=== PATIENT | male | born 1950 | race Caucasian/White ===

== ENCOUNTER 2023-08-19 06:23 | Day surgery (SDC) | payer MEDICARE, BC ==
[~2023-08-19] VITALS: Ht 165.1 cm; Wt 101.2 kg
[~2023-08-19 06:23] MED LIST: BAYE81TA10 PO; FAMO40TA3 PO; HYDR-3490 PO; LOSA100T46 PO; META0.52 PO; NEUR300C PO; PRESCAP4 PO; SIMV40TA20 PO; TIRZ5PEN SC; TRAZ-252 PO
[2023-08-19] MEDS ORDERED: LR 1,000 ML IV SCH (07:00)
[2023-08-19] MEDS ORDERED: MIDAZOLAM INJ 2MG/2ML VIAL As Ordered ONE (07:09)
[2023-08-19] MEDS ORDERED: fentaNYL 100 MCG/2 ML INJECTION As Ordered ONE (07:09)
[2023-08-19] MEDS: PHENYLEPHRINE 2.5% OPHTH SOL 2ML OD SCH (07:11)
[2023-08-19] MEDS: FLURBIPROFEN 0.03% OPHTH SOLN 2.5 ML OD SCH (07:11)
[2023-08-19] MEDS: TETRACAINE 0.5% OPHTH SOLN 4ML OD SCH (07:11)
[2023-08-19] MEDS: ATROPINE SULFATE 1% OPHTH SOLN 2ML BTL OD SCH (07:11)
[2023-08-19] MEDS: CEFUROXIME 1MG/0.1ML INTRACAMERAL INJ As Ordered ONE (08:23)
[2023-08-19] MEDS: LIDOCAINE 1% SDV 5ML VIAL As Ordered ONE (08:23)
[2023-08-19 08:44] VITALS: BP 153/71; TEMP 97.2; O2SAT 97
== END 2023-08-19 09:03 | disposition home or self-care (01) ==
LOC: M SDC 06:23
PROVIDERS: ATTEND Ophthalmology
DX: E11.36 Type 2 diabetes mellitus with diabetic cataract (principal); H25.11 Age-related nuclear cataract, right eye; E78.00 Pure hypercholesterolemia, unspecified; I10 Essential (primary) hypertension; G47.30 Sleep apnea, unspecified; Z79.899 Other long term (current) drug therapy; Z79.82 Long term (current) use of aspirin; Z79.85 Long-term (current) use of injectable non-insulin antidiabetic drugs; Z87.891 Personal history of nicotine dependence
CPT/HCPCS: 66984; J0697; J2250; J3010; V2632

== ENCOUNTER 2023-09-16 08:01 | Day surgery (SDC) | payer MEDICARE, BC ==
[~2023-09-16] VITALS: Ht 165.1 cm; Wt 99.0 kg
[~2023-09-16 08:01] MED LIST changes: +LR 1,000 ML IV SCH; +MIDAZOLAM INJ 2MG/2ML VIAL As Ordered ONE; +MIRA3350 PO; +fentaNYL 100 MCG/2 ML INJECTION As Ordered ONE
[2023-09-16] MEDS: FLURBIPROFEN 0.03% OPHTH SOLN 2.5 ML OS SCH (08:49)
[2023-09-16] MEDS: TETRACAINE 0.5% OPHTH SOLN 4ML OS SCH (08:49)
[2023-09-16] MEDS: PHENYLEPHRINE 2.5% OPHTH SOL 2ML OS SCH (08:49)
[2023-09-16] MEDS: ATROPINE SULFATE 1% OPHTH SOLN 2ML BTL OS SCH (08:49)
[2023-09-16] MEDS: LIDOCAINE 1% SDV 5ML VIAL As Ordered ONE (09:56)
[2023-09-16] MEDS: CEFUROXIME 1MG/0.1ML INTRACAMERAL INJ As Ordered ONE (09:58)
[2023-09-16 10:15] VITALS: BP 136/63; TEMP 97.7; O2SAT 98
== END 2023-09-16 10:26 | disposition home or self-care (01) ==
LOC: M SDC 08:01
PROVIDERS: ATTEND Ophthalmology
DX: H25.12 Age-related nuclear cataract, left eye (principal); I10 Essential (primary) hypertension; E11.9 Type 2 diabetes mellitus without complications; E78.5 Hyperlipidemia, unspecified; G47.33 Obstructive sleep apnea (adult) (pediatric); Z79.82 Long term (current) use of aspirin; Z79.899 Other long term (current) drug therapy
CPT/HCPCS: 66984; J0697; J2250; J3010; V2632